=== PATIENT | male | born 1990 | race Caucasian/White ===

== ENCOUNTER 2025-02-06 15:30 | Outpatient (RCR) | payer OTHER, SELFPAY | END 2025-02-06 15:53 | disposition home or self-care (01) | LOC: HO.OT 15:30 | PROVIDERS: PCP Family Medicine; Visit Provider Student in an Organized Health Care Education/Training Program | DX: S52.572D Other intraarticular fracture of lower end of left radius, subsequent encounter for closed fracture with routine healing (principal) | CPT/HCPCS: 97110; 97140; 97166; 97530 ==